=== PATIENT | female | born 1985 | race African-American/Black ===

== ENCOUNTER 2023-01-14 15:34 | Emergency (ER) | payer MEDICAID, OTHER ==
[~2023-01-14] VITALS: Ht 167.6 cm; Wt 85.7 kg
[2023-01-14 15:56] VITALS: BP 123/80; PULSE 80; RESP 16; TEMP 98.5; O2SAT 99
[2023-01-14] MEDS ORDERED: IVER3TAB2 MT (16:15)
== END 2023-01-14 16:34 | disposition home or self-care (01) ==
LOC: ER 15:34
DX: B86 Scabies (principal); D64.9 Anemia, unspecified; Z98.890 Other specified postprocedural states; I49.9 Cardiac arrhythmia, unspecified
CPT/HCPCS: 99283

== ENCOUNTER 2023-01-24 14:54 | Emergency (ER) | payer MEDICAID ==
[~2023-01-24] VITALS: Ht 167.6 cm; Wt 75.0 kg
[~2023-01-24 14:54] MED LIST: IVER3TAB2 MT
[2023-01-24 15:07] VITALS: BP 131/65; PULSE 85; RESP 18; TEMP 98.5; O2SAT 100
[2023-01-24] MEDS ORDERED: PERM60CR4 TP (16:47)
[2023-01-24] MEDS ORDERED: IVER3TAB2 MT (16:47)
== END 2023-01-24 17:46 | disposition home or self-care (01) ==
LOC: ER 14:54
DX: B86 Scabies (principal)
CPT/HCPCS: 99281; 99283

== ENCOUNTER 2023-02-11 10:36 | Emergency (ER) | payer OTHER ==
[~2023-02-11] VITALS: Ht 167.6 cm; Wt 85.0 kg
[2023-02-11 11:02] VITALS: BP 136/79; PULSE 75; RESP 18; TEMP 98.5; O2SAT 98
[2023-02-11 12:29] LABS: CLARITY URINE CLEAR (CLEAR); COLOR URINE YELLOW (YELLOW); GLUCOSE URINE NEGATIVE (NEGATIVE); KETONES URINE NEGATIVE (NEGATIVE); LEUKOCYTE ESTERASE URINE NEGATIVE (NEGATIVE); NITRITE URINE NEGATIVE (NEGATIVE); OCCULT BLOOD URINE NEGATIVE (NEGATIVE); PH URINE 5.5 (4.5-8.0); PROTEIN URINE NEGATIVE (NEGATIVE); UROBILINOGEN URINE 0.2 E.U./dL (0.2-1.0)
[2023-02-11] MEDS ORDERED: PERM60CR4 TP (12:34)
[2023-02-11] MEDS ORDERED: IVER3TAB2 MT (12:34)
== END 2023-02-11 13:06 ==
LOC: ER 11:19
DX: B86 Scabies (principal); Z68.30 Body mass index [BMI] 30.0-30.9, adult; D64.9 Anemia, unspecified; Z98.890 Other specified postprocedural states; I49.9 Cardiac arrhythmia, unspecified; Z79.899 Other long term (current) drug therapy
CPT/HCPCS: 81003; 81025; 99283

== ENCOUNTER → 2023-02-11 | Emergency (ER) | payer OTHER ==
[~2023-02-11] MED LIST changes: +CLOT15CR27 TP; +PERM60CR4 TP
== END ==
LOC: ER 14:32
DX: Z53.21 Procedure and treatment not carried out due to patient leaving prior to being seen by health care provider (principal)
CPT/HCPCS: 99281

== ENCOUNTER 2023-02-19 13:17 | Emergency (ER) | payer MEDICAID ==
[~2023-02-19] VITALS: Ht 167.6 cm; Wt 90.0 kg
[2023-02-19 13:42] VITALS: O2SAT 100
[2023-02-19 13:46] VITALS: BP 107/68; PULSE 99; TEMP 98.6
[2023-02-19] MEDS ORDERED: PERM60CR4 TP (15:23)
== END 2023-02-19 15:46 | disposition home or self-care (01) ==
LOC: ER 14:08
DX: B86 Scabies (principal); Z88.6 Allergy status to analgesic agent; Z88.5 Allergy status to narcotic agent; Z98.890 Other specified postprocedural states
CPT/HCPCS: 99281; 99282

== ENCOUNTER 2023-05-06 10:13 | Emergency (ER) | payer MEDICAID ==
[~2023-05-06] VITALS: Ht 167.6 cm; Wt 86.0 kg
[2023-05-06 10:41] VITALS: BP 104/56; O2SAT 100
[2023-05-06] MEDS ORDERED: IBUP-2030 MT ×2 (11:19→11:20)
[2023-05-06] MEDS ORDERED: PERM60CR4 TP ×2 (11:19→11:20)
[2023-05-06 11:47] VITALS: PULSE 73; RESP 16; TEMP 98.4
== END 2023-05-06 11:48 | disposition home or self-care (01) ==
LOC: ER 10:13
DX: B86 Scabies (principal); M72.2 Plantar fascial fibromatosis; Z88.5 Allergy status to narcotic agent; Z88.6 Allergy status to analgesic agent; Z98.890 Other specified postprocedural states
CPT/HCPCS: 99281

== ENCOUNTER 2023-09-20 12:12 | Emergency (ER) | payer SELFPAY ==
[~2023-09-20] VITALS: Ht 165.1 cm; Wt 87.0 kg
[~2023-09-20 12:12] MED LIST changes: +IBUP-2030 MT
[2023-09-20 12:16] VITALS: BP 136/68; PULSE 80; RESP 19; TEMP 98.3; O2SAT 99
[2023-09-20] MEDS ORDERED: PERM60CR4 TP (12:41)
== END 2023-09-20 12:50 | disposition home or self-care (01) ==
LOC: ER 12:32
DX: B86 Scabies (principal); D64.9 Anemia, unspecified; F19.90 Other psychoactive substance use, unspecified, uncomplicated; Z98.890 Other specified postprocedural states
CPT/HCPCS: 99282

== ENCOUNTER 2023-12-22 14:15 | Emergency (ER) | payer OTHER ==
[~2023-12-22] VITALS: Ht 172.7 cm; Wt 100.0 kg
[2023-12-22 14:21] VITALS: BP 140/71; PULSE 83; RESP 18; O2SAT 96
[2023-12-22 14:45] VITALS: TEMP 98.5
[2023-12-22] MEDS: ACETAMINOPHEN 325MG TABLET PO ONE (14:45)
[2023-12-22] MEDS ORDERED: METH-653 MT (15:44)
== END 2023-12-22 16:12 | disposition home or self-care (01) ==
LOC: ER 14:15
DX: S40.021A Contusion of right upper arm, initial encounter (principal); S09.90XA Unspecified injury of head, initial encounter; M79.652 Pain in left thigh; Z88.6 Allergy status to analgesic agent; Z88.5 Allergy status to narcotic agent; Z79.899 Other long term (current) drug therapy; Z98.890 Other specified postprocedural states; Y04.0XXA Assault by unarmed brawl or fight, initial encounter; Y93.89 Activity, other specified; Y92.89 Other specified places as the place of occurrence of the external cause; Y99.8 Other external cause status
CPT/HCPCS: 73552; 99284

== ENCOUNTER 2024-09-06 11:57 | Emergency (ER) | payer MEDICAID ==
[~2024-09-06] VITALS: Ht 170.2 cm; Wt 91.0 kg
[~2024-09-06 11:57] MED LIST changes: +METH-653 MT
[2024-09-06 12:07] VITALS: BP 111/70; TEMP 36.9; O2SAT 99
[2024-09-06 12:10] VITALS: PULSE 114; RESP 18; O2SAT 100
[2024-09-06] MEDS: IBUPROFEN 600MG TABLET PO ONE (14:18)
[2024-09-06] MEDS: METHOCARBAMOL 500MG TABLET PO ONE (14:18)
[2024-09-06] MEDS ORDERED: METH-653 MT (16:27)
[2024-09-06] MEDS ORDERED: IBUP-2029 MT (16:27)
[2024-09-06] MEDS ORDERED: LIDO700A30 TP (16:27)
== END 2024-09-06 16:45 | disposition home or self-care (01) ==
LOC: ER 11:57
DX: G89.29 Other chronic pain (principal); M54.50 Low back pain, unspecified; Z88.5 Allergy status to narcotic agent; Z79.899 Other long term (current) drug therapy; Z98.890 Other specified postprocedural states
CPT/HCPCS: 72100; 81025; 99283

== ENCOUNTER 2024-11-27 07:43 | Emergency (ER) | payer MEDICAID, OTHER ==
[~2024-11-27] VITALS: Ht 170.2 cm; Wt 91.0 kg
[~2024-11-27 07:43] MED LIST changes: +IBUP-2029 MT; +LIDO700A30 TP
[2024-11-27 07:51] VITALS: O2SAT 98
[2024-11-27] MEDS ORDERED: METHOCARBAMOL 500MG TABLET PO ONE (09:30)
[2024-11-27] MEDS ORDERED: KETOROLAC 30MG/ML VIAL IM ONE (09:30)
[2024-11-27] MEDS ORDERED: METH-653 MT (10:09)
[2024-11-27] MEDS: METHOCARBAMOL 500MG TABLET PO NR (10:53)
[2024-11-27] MEDS: KETOROLAC 30MG/ML VIAL IM NR (10:55)
[2024-11-27 10:58] VITALS: BP 122/70; PULSE 90; RESP 16; TEMP 36.7; O2SAT 98
== END 2024-11-27 11:00 | disposition home or self-care (01) ==
LOC: ER 07:43
DX: S43.401A Unspecified sprain of right shoulder joint, initial encounter (principal); D64.9 Anemia, unspecified; F19.90 Other psychoactive substance use, unspecified, uncomplicated; Z98.890 Other specified postprocedural states; Z79.899 Other long term (current) drug therapy; X58.XXXA Exposure to other specified factors, initial encounter; Y93.89 Activity, other specified; Y92.89 Other specified places as the place of occurrence of the external cause; Y99.8 Other external cause status
CPT/HCPCS: 99283; 73030; 96372; J1885